=== PATIENT | male | born 1935 | race Caucasian/White ===

== ENCOUNTER → 2020-01-25 13:11 | Outpatient (CLI) | payer MEDICARE, OTHER, SELFPAY ==
--- NOTE | 2020-01-25 13:18 | STEWCON_ITS ---
Reason For Study: HTN, LIGHTHEADEDNESS Stress Results Protocol: Modified Jer Protocol With Definity Maximum Predicted HR: 136 bpm Target HR: 116 bpm % Maximum Predicted HR: 92 % DurationHeart Rate Stage (mm:ss) (bpm) BP Comment BASELINE 60 130/624 CC DEFINITY STAGE 0 3:00 108 168/82 STAGE 1/2 2:38 125 212/72INCREASED SOB AND FATIGUE RECOVERY 75 150/70 Stress Duration: 5:38 mm:ss Maximum Stress HR: 125 bpm Baseline Echocardiogram Findings Stress Echo Wall motion Data Resting WM Intermediate WM Stress WM Interpretation Summary Exercise stress echo. 84-year-old man with a history of hypertension and lightheadedness. Stress protocol: Resting EKG demonstrates sinus bradycardia with a rate of 58 bpm. No acute changes noted. The patient exercised according to the modified Jer criteria for 5 minutes and 38 seconds. The maximum heart rate attained was 126 bpm which was 92% of maximal predicted heart rate the maximum workload was 3.4 metabolic equivalents. At rest there were no ST or T wave changes noted to suggest ischemia at peak exercise nonspecific ST changes were noted with no meet the criteria for ischemia. No clinical angina was noted the test was terminated due to general fatigue. The resting blood pressure was 130/62 with a peak blood pressure of 212/72 mmHg. Hypertensive response to exercise was noted. Stress echocardiographic images. Resting and stress echocardiographic images were obtained with Definity enhancement. The resting ejection fraction was 65% with a peak ejection fraction of 75% with no wall motion abnormalities and near chamber obliteration noted. Conclusion: Normal exercise stress echocardiogram at a low workload. Sensitivity for detection of ischemia at this workload is reduced. Preserved ejection fraction present. Ordering Physician: Nacho Palomino Referring Physician: Nacho Palomino Performed By: Landon Templeton RCS
== END ==
PROVIDERS: PCP Family Medicine; Referring Provider Student in an Organized Health Care Education/Training Program; Visit Provider Student in an Organized Health Care Education/Training Program
DX: R42 Dizziness and giddiness (principal); I10 Essential (primary) hypertension
CPT/HCPCS: 93017; 93350; Q9957; A4216; C8928